=== PATIENT | male | born 1980 | race Hispanic/Latino ===

== ENCOUNTER 2023-05-31 15:46 | Outpatient (CLI) | payer OTHER, SELFPAY ==
--- NOTE | ~2023-05-31 | MR_ITS ---
EXAMINATION: MR foot LT wo con DATE: 05/31/2023 16:59 INDICATION: Plantar left hindfoot pain. TECHNIQUE: Magnetic resonance imaging (MRI) of the right ankle, mid and hindfoot was performed withou t intravenous contrast. Sequences included sagittal, coronal, and axial proton-density weighted fast spin echo without and with fat saturation. COMPARISON: None. FINDINGS: Medial ankle ligaments: There is disruption of the normally well-defined striated pattern of the deep deltoid ligament consis tent with scarring related to chronic sprain. Also consistent with chronic sprains are small heteroto pic ossicles along the anterior and posterior superficial deltoid ligament. The spring ligament compl ex remains normal. Lateral ankle ligaments: Attenuation of the anterior talofibular ligament with small heterotopic ossification at its talar ins ertion consistent with sequela of chronic sprain. Mild thickening and mild increased signal of the ca lcaneofibular ligament consistent with scarring related to chronic sprain. The anterior and posterior inferior tibiofibular ligaments as well as the posterior talofibular ligament are normal. Tendons: Achilles tendon is normal. The peroneus longus and brevis tendons are normal. The tibialis anterior a nd extensor hallucis longus and extensor digitorum longus tendons are normal. The tibialis posterior, flexor digitorum longus and flexor hallucis longus tendons are normal. Plantar fascia: There is thickening and prominent increased signal of less than fluid intensity at the proximal aspec t of the central component of the plantar aponeurosis consistent with moderate enthesopathy. No fluid signal intensity tear defect or discrete discontiguous fibers of the aponeurosis to suggest a tear. No surrounding marrow or soft tissue edema to suggest acute plantar fasciitis. Bones/other: Old healed fracture deformity at the distal metadiaphyseal region of the fibula. Likely secondary old healed posterior malleolar fracture with irregular cortical contour to the medial side of the bunker worker ior malleolus. Alignment remains essentially anatomic. Bone marrow signals unremarkable with no react jovanni edema, fracture or pathologic marrow replacing process. Joint spaces appear relatively preserved. The Lisfranc ligament complex is normal. Fluid: Physiologic amount fluid in the joint spaces. No tenosynovitis or other abnormal fluid collections. IMPRESSION: 1. Moderate plantar enthesopathy without discrete tear. 2. Old healed fractures of the distal fibula and posterior malleolus with likely associated chronic s prains of some of the medial and lateral stabilizing ligaments of the ankle as detailed above. Reviewed, dictated and finalized at location A. [employer] IMPRESSION: 1. Moderate plantar enthesopathy without discrete tear. 2. Old healed fractures of the distal fibula and posterior malleolus with likel y associated chronic sprains of some of the medial and lateral stabilizing liga ments of the ankle as detailed above.
== END 2023-05-31 15:47 | disposition home or self-care (01) ==
PROVIDERS: Visit Provider Radiology Diagnostic Radiology
DX: M79.672 Pain in left foot (principal); M77.32 Calcaneal spur, left foot
CPT/HCPCS: 73718